=== PATIENT | male | born 1970 | race Caucasian/White ===

== ENCOUNTER 2019-04-12 14:41 | Emergency (ER) | payer SELFPAY ==
[~2019-04-12] VITALS: Ht 180.3 cm; Wt 96.6 kg
[2019-04-12 14:50] VITALS: BP 117/73
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
[2019-04-12] MEDS ORDERED: Morgan Lens TOPIC ONE (15:00)
--- NOTE | 2019-04-12 15:15 | NUR ---
ED Nurse Note: Pt refused bilateral eye irrigation procedure, reported to Dr. Villa.
--- NOTE | 2019-04-12 15:18 | NUR ---
ED Nurse Note: Offered water and sandwich per pt request.
[2019-04-12 15:21] VITALS: BP 117/73
--- NOTE | 2019-04-12 15:21 | NUR ---
ER DISCHARGE NOTE: Patient is cleared to be discharged per ERMD, pt is AOx3, on room air, with stable vital signs. dc and prescription instructions handed to , pt was able to verbalize understanding, pt id band removed. pt is able to ambulate with steady gait. pt left ED escorted by .
== END 2019-04-12 15:21 ==
LOC: EMR 15:09
DX: H11.423 Conjunctival edema, bilateral (principal); Z88.8 Allergy status to other drugs, medicaments and biological substances
CPT/HCPCS: 99281